=== PATIENT | female | born 1950 | race Caucasian/White ===

== ENCOUNTER 2020-12-21 11:58 | Outpatient (REF) | payer MEDICARE, SELFPAY ==
[2020-12-21 13:06] LABS: MANUAL DIFF FLAG NO
[2020-12-21 13:14] LABS: Basophils Percent Auto 0.3 % (0-2); Eosinophils Absolute Auto 0.2 X10*3/uL (0.0-0.4); Hematocrit 42.6 % (37-47); Hemoglobin 13.4 g/dl (12.0-16.0); Imm Gran Abs Auto 0.03 X10*3/uL (0.00-0.03); Imm Gran Pct Auto 0.3 % (0.0-0.4); Lymphocytes Absolute Auto 2.6 X10*3/uL (1.2-4.9); Lymphocytes Percent Auto 26.4 % (20-40); Mean Corpuscular HGB Conc 31.5 g/dl (31.0-35.0); Mean Corpuscular Hemoglobin 29.1 pg (27.0-33.0); Mean Corpuscular Volume 92.4 fL (80-98); Mean Platelet Volume 10.8 fL (9.4-12.3); Monocytes Absolute Auto 0.8 X10*3/uL (0.1-1.2); Monocytes Percent Auto 8.2 % (2-11); Neutrophils Absolute Auto 6.3 X10*3/uL (2.0-8.3); Neutrophils Percent Auto 62.8 % (45-73); Platelet Count 244 X10*3/uL (160-400); Red Blood Count 4.61 X10*6/uL (4.20-5.50); Red Cell Distribution Width 15.4 % (11.0-16.0)
[2020-12-21 13:33] LABS: Alanine Aminotransferase 11 U/L (0-31); Alkaline Phosphatase 112 U/L (39-117); Anion Gap 13 (12-20); Aspartate Amino Transferase 18 U/L (5-31); Bilirubin Total 0.6 mg/dL (0.0-1.0); Blood Urea Nitrogen 17 mg/dL (9-16); Calcium 10.3 mg/dL (8.4-10.2); Carbon Dioxide 23 mmol/L (22-29); Chloride 109 mmol/L (96-108); Cholesterol 104 mg/dL; Estimated Glomerular Filt Rate > 60; Glucose Fasting 70 mg/dL (60-99); HDL Cholesterol 33 mg/dL; LDL Cholesterol Calculated 49 mg/dl; Potassium 4.7 mmol/L (3.3-5.1); Sodium 140 mmol/L (135-145); Total Protein 7.1 g/dL (6.5-8.0); Triglycerides 113 mg/dL
== END 2020-12-21 11:59 | disposition home or self-care (01) ==
LOC: HO.LAB 11:58
PROVIDERS: PCP Internal Medicine; Visit Provider Internal Medicine
DX: D64.9 Anemia, unspecified (principal); E78.2 Mixed hyperlipidemia; R42 Dizziness and giddiness
CPT/HCPCS: 36415; 80053; 80061; 85025

== ENCOUNTER 2022-08-06 12:42 | Outpatient (REF) | payer MEDICARE, SELFPAY ==
[2022-08-06 15:01] LABS: Alanine Aminotransferase 15 U/L (0-31); Albumin Level 3.9 g/dL (3.5-5.0); Alkaline Phosphatase 170 U/L (39-117); Anion Gap 11 (12-20); Aspartate Amino Transferase 18 U/L (5-31); Bilirubin Total 0.6 mg/dL (0.0-1.0); Blood Urea Nitrogen 19 mg/dL (9-16); Calcium 10.5 mg/dL (8.4-10.2); Carbon Dioxide 24 mmol/L (22-29); Chloride 107 mmol/L (96-108); Cholesterol 118 mg/dL; Estimated Glomerular Filt Rate > 60; Glucose Fasting 75 mg/dL (60-99); HDL Cholesterol 42 mg/dL; LDL Cholesterol Calculated 58 mg/dl; Potassium 4.6 mmol/L (3.3-5.1); Sodium 137 mmol/L (135-145); Total Protein 6.8 g/dL (6.5-8.0); Triglycerides 93 mg/dL
== END 2022-08-06 12:43 | disposition home or self-care (01) ==
LOC: HO.LAB 12:42
PROVIDERS: PCP Internal Medicine; Visit Provider Internal Medicine
DX: E78.2 Mixed hyperlipidemia (principal)
CPT/HCPCS: 36415; 80053; 80061

== ENCOUNTER 2022-10-02 17:55 | Inpatient (IN) | payer MEDICARE, SELFPAY ==
--- NOTE | ~2022-10-02 | XR_ITS ---
EXAMINATION: XR CHEST CLINICAL INFORMATION: Hypoxia COMPARISON: None TECHNIQUE: Frontal view of the chest was obtained. FINDINGS: Diffuse prominence of interstitium. Bronchial thickening. Asymmetric elevation of left hemidiaphragm. No discrete consolidation. No pleural effusion or pneumothorax. Cardiac silhouette within normal limits, although poorly assessed in the [place] projection. Aorta is atherosclerotic. No acute osseous abnormalities. Chronic fracture deformity of the proximal humerus involving the metaphysis and humeral head XR/XR chest 1V IMPRESSION: * No focal consolidation. * Bronchial wall thickening and interstitial prominence suggestive of bronchitis. Interstitial edema may be contributing.
--- NOTE | ~2022-10-02 | CT_ITS ---
EXAMINATION: CT ANGIOGRAM OF THE CHEST WITH AND WITHOUT CONTRAST (CT PULMONARY ANGIOGRAM FOR PE) CLINICAL INFORMATION: Reason for Exam Hypoxia COMPARISON: None TECHNIQUE: Prior to contrast administration, noncontrast localization images were obtained. Subsequently, multidetector volumetric imaging was performed from the thoracic inlet to below the diaphragms following the administration of 65 mL Omnipaque 350 intravenous contrast. No contrast reaction reported Sagittal, coronal, and MIP oblique sagittal reformatted images were obtained on the CT workstation, uploaded to PACS, and reviewed. This CT examination was performed using dose optimization techniques as appropriate, variously including the following: *Automated exposure control *Adjustment of mA and/or kV according to patient size (this includes techniques or standardized protocols for targeted exams where dose is matched to indication/reason for exam; i.e. extremities or head) *Use of iterative reconstruction technique Total exam dose-length product 312 mGy-cm FINDINGS: QUALITY OF STUDY/CONTRAST BOLUS: Satisfactory. PULMONARY ARTERIES: No central or segmental pulmonary emboli. THORACIC AORTA: No aneurysm or dissection. LUNG: Moderate to severe emphysema. Left basilar subsegmental atelectasis. There is a punctate nodule in the lateral segment of the middle lobe. There are a few scattered calcified granulomata. PLEURA: No pleural effusion or pneumothorax. MEDIASTINUM: Normal heart size. No pericardial effusion. No hilar or mediastinal lymphadenopathy. No evidence of septal bowing or right heart strain. CORONARY ARTERY CALCIFICATION: Present. CHEST WALL/AXILLA: No axillary or internal mammary lymphadenopathy. OSSEOUS STRUCTURES: No acute or suspicious osseous abnormality. UPPER ABDOMEN: Unremarkable. CT/CT angio chest PE protocol IMPRESSION: * No evidence of pulmonary embolism. * No aortic aneurysm or dissection. * Moderate to severe emphysema VTE: negative
--- NOTE | ~2022-10-02 | US_ITS ---
EXAMINATION: US ABDOMEN LIMITED CLINICAL INFORMATION: Right upper quadrant pain. COMPARISON: CTA chest earlier today. TECHNIQUE: Real-time imaging of the right upper quadrant abdominal viscera. FINDINGS: Very limited examination secondary to patient body habitus and shadowing from overlying bowel gas. PANCREAS: Not visualized LIVER: Limited visualization with suggestion of increased echogenicity and coarsening of the liver parenchyma. No discrete mass, although evaluation is limited. GALLBLADDER: No shadowing stones, significant wall thickening or pericholecystic free fluid. COMMON BILE DUCT: Visualized portions are nondilated measuring 0.3 cm. RIGHT KIDNEY: Very limited visualization measuring approximately 6.8 cm in length. No nephrolithiasis or hydronephrosis. FREE FLUID: None. US/US abdomen limited IMPRESSION: 1. Very limited examination secondary to patient body habitus and shadowing from overlying bowel gas. 2. There is suggestion of increased echogenicity and coarsening of the liver parenchyma, which could be seen in the setting of hepatic steatosis, hepatocellular disease and cirrhosis.
[2022-10-02 18:10] VITALS: BP 132/78; BP 152/74; PULSE 87; RESP 16; TEMP 36.8; O2SAT 98; BMI 21.8
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
[2022-10-02 18:52] LABS: MANUAL DIFF FLAG NO
[2022-10-02 18:53] LABS: Hematocrit 45.3 % (37.0-47.0); Hemoglobin 14.2 g/dl (12.0-16.0); Mean Corpuscular HGB Conc 31.3 g/dl (31.0-35.0); Mean Corpuscular Hemoglobin 28.6 pg (27.0-33.0); Mean Corpuscular Volume 91.1 fL (80.0-98.0); Platelet Count 205 X10*3/uL (160-400); Red Blood Count 4.97 X10*6/uL (4.20-5.50); Red Cell Distribution Width 15.1 % (11.0-16.0); White Blood Count 9.6 X10*3/uL (4.8-10.8)
[2022-10-02 18:54] LABS: Basophils Absolute Auto 0.1 X10*3/uL (0.0-0.2); Basophils Percent Auto 0.5 % (0-2); Eosinophils Absolute Auto 0.2 X10*3/uL (0.0-0.4); Eosinophils Percent Auto 2.3 % (0-4); Imm Gran Abs Auto 0.04 X10*3/uL (0.00-0.03); Imm Gran Pct Auto 0.4 % (0.0-0.4); Lymphocytes Percent Auto 30.9 % (20-40); Mean Platelet Volume 10.3 fL (9.4-12.3); Monocytes Absolute Auto 0.7 X10*3/uL (0.1-1.2); Monocytes Percent Auto 7.6 % (2-11); Neutrophils Absolute Auto 5.6 x10*3/uL (2.0-8.3); Neutrophils Percent Auto 58.3 % (45-73)
[2022-10-02 19:17] LABS: Alanine Aminotransferase 11 U/L (0-31); Albumin Level 3.5 g/dL (3.5-5.0); Alkaline Phosphatase 147 U/L (39-117); Anion Gap 14 (12-20); Aspartate Amino Transferase 20 U/L (5-31); Bilirubin Total 0.6 mg/dL (0.0-1.0); Blood Urea Nitrogen 14 mg/dL (9-16); Calcium 8.7 mg/dL (8.4-10.2); Carbon Dioxide 23 mmol/L (22-29); Chloride 109 mmol/L (96-108); Creatinine Clr Calc Pharmacy 51.5; Estimated Glomerular Filt Rate > 60; Glucose Random 81 mg/dL (60-115); Magnesium 1.3 mg/dL (1.6-2.6); Potassium 3.5 mmol/L (3.3-5.1); Sodium 142 mmol/L (135-145); Total Protein 6.2 g/dL (6.5-8.0)
[2022-10-02] MEDS: 0.9 % Sodium Chloride 1,000 ML 999 ML IV (19:23)
[2022-10-02 19:46] LABS: Appearance Urine Clear; Color Urine Yellow; Glucose Urine UA Negative (Negative); Leukocyte Esterase Urine Moderate (2+) (Negative); Nitrite Urine Positive (Negative); UMIC TRIGGER UACC YES; Urine Blood Negative (Negative); Urine Ketones Negative (Negative); Urine Protein Trace mg/dL (Neg-Trace)
[2022-10-02 19:52] LABS: Bacteria Urine 4+ (None Seen); Hyaline Casts Urine 0-2 /LPF (0-2); Squamous Epithelial Cell Urine 0-2 /HPF (0-2); UACC Culture Trigger YES; WBC Urine 21-50 /HPF (0-5)
[2022-10-02] MEDS: Magnesium Sulfate/H2O 2 GM/50 ML PIGGYBACK IV (20:35)
[2022-10-02] MEDS: cefTRIAXone sodium 1 GM in 0.9 % Sodium Chloride 50 ML IV (21:05)
[2022-10-02 22:27] VITALS: BP 144/79; PULSE 78; TEMP 36.4; O2SAT 91
[2022-10-02 23:01] VITALS: O2SAT 85
--- NOTE | 2022-10-02 23:09 | PC.NURSE ---
Assumed care of pt. at 1900. At that time, pt. resting quietly in bed. Pt. pending fluids, which this RN had running per SEP. Pt. urine collected and sent to lab. At around 2229 pt. oxygen found to be low at 85. Checked O2 sensor and O2 bumped up to 91%. Pt. began to desat again and was found to be at 85% on room air. MD notified and respiratory called to administer a breathing treatment.
[2022-10-02] MEDS: methylPREDNISolone Sod Succ 125 MG/2 ML VIAL IVPUSH (23:19)
[2022-10-02 23:23] VITALS: PULSE 76; RESP 16; O2SAT 86
[2022-10-02 23:28] VITALS: O2SAT 86
[2022-10-02 23:46] LABS: ABG Refer to POC result
[2022-10-02 23:47] LABS: ABG Base Excess -4.8 mmol/L; ABG HCO3 20 mmol/L (22-26); ABG pCO2 37 mmHg (32-45); ABG pH 7.33 (7.35-7.45); ABG pO2 62 mmHg (83-108)
[2022-10-03 00:36] LABS: COVID-19 Test Negative (Negative); IDNOW Serial# 16C4AD1C
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
[2022-10-03] MEDS: Heparin Sodium,Porcine 5,000 UNIT/ML VIAL 5000 UNIT SUBCUT ×3 (01:29→17:14)
[2022-10-03] MEDS: iohexoL 350 MG/ML 100 ML INFUS..BTL 65 ML IV (03:05)
[2022-10-03 03:11] VITALS: BP 122/69; PULSE 76; RESP 16; TEMP 36.8; O2SAT 96
[2022-10-03 04:00] VITALS: BP 125/57; PULSE 78; RESP 15; TEMP 37.1; O2SAT 97
--- NOTE | 2022-10-03 04:15 | PC.NURSE ---
Pt. assigned a room on [facility], [facility]. Report called up to ASHLEE Celestin.
[2022-10-03 05:36] VITALS: BMI 21.4
[2022-10-03 06:50] LABS: Alanine Aminotransferase 10 U/L (0-31); Albumin Level 3.2 g/dL (3.5-5.0); Alkaline Phosphatase 138 U/L (39-117); Anion Gap 14 (12-20); Aspartate Amino Transferase 17 U/L (5-31); Bilirubin Total 0.4 mg/dL (0.0-1.0); Blood Urea Nitrogen 15 mg/dL (9-16); Calcium 8.3 mg/dL (8.4-10.2); Carbon Dioxide 19 mmol/L (22-29); Chloride 111 mmol/L (96-108); Creatinine Clr Calc Pharmacy 42.9; Estimated Glomerular Filt Rate 58; Glucose Random 175 mg/dL (60-115); Potassium 3.5 mmol/L (3.3-5.1); Sodium 140 mmol/L (135-145); Total Protein 5.8 g/dL (6.5-8.0)
--- NOTE | 2022-10-03 07:00 | CA_ITS ---
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 The calculated ejection fraction is 71% by biplane method. - No obvious valvular pathology seen on this study. Findings Left Ventricle Normal left ventricular cavity size. There is mildly increased left ventricular wall thickness. The left ventricular systolic function is hyperdynamic. The calculated ejection fraction is 71% by biplane method. There is no evidence of regional wall motion abnormalities. Diastolic function is normal for age. Right Ventricle Normal right ventricular cavity size and systolic function. Atria Both atria are normal in size. Aortic Valve There is a normal trileaflet aortic valve. There is no aortic valve stenosis. There is no aortic valve regurgitation. Mitral Valve There is mild mitral annular calcification. There is trace mitral valve regurgitation. There is no mitral valve stenosis. Pulmonic Valve The pulmonic valve is likely normal. Tricuspid Valve Normal tricuspid valve structure. There is trace tricuspid valve regurgitation. There is no evidence of pulmonary hypertension. Great Vessels The asc aorta is normal in size. Venous The inferior vena cava is normal in size and collapses greater than 50% with inspiration. Pericardium/Pleural There is no evidence of pericardial effusion. Prior Study Comparison No prior study available for comparison. Recommendations, Care & Conclusions No obvious valvular pathology seen on this study. Measurements 2D Linear Measurements IVSd: 1.09 0.6-0.9/0.6-1.0 cm LVIDd: 3.46 3.9-5.3/4.2-5.9 cm LVIDd Index: 2.28 2.4-3.2/2.2-3.1 cm/m2 LVIDs: 2.31 2.0-3.6 cm LVPWd: 1.07 0.7-1.1 cm LA Diam: 3.20 2.7-3.8/3.0-4.0 cm LAIDs Index: 2.11 1.5-2.3 cm/m2 LV Mass: 141.53 67-162/88-224 g LV Mass Index: 93.11 43-95/49-115 g/m2 LVOT Diam: 2.00 3.0+(-)1.3 cm 2D Systolic Function EF 4C: 70.60 >55% EF 2C: 71.40 >55% EF BiP: 71.40 >55% Mitral Valve MV VTI: 0.35 MV Pk Aiden: 1.13 MV Mn Aiden: 0.69 MV Pk Grad: 5.00 MV Mn Grad: 2.00 MV Pk E: 0.85 MV Decel Time: 229.00 E'Lateral: 8.27 E'Medial: 5.98 E/E' Med: 14.20 E/E' Lat: 10.30 PHT: 67.00 MVA PHT: 3.28 MVA Continuity: 1.86 Decel Foster: 3.72 Aortic Valve AoV Pk Aiden: 1.61 AoV Mn Aiden: 0.97 AoV VTI: 0.33 AoV Pk Grad: 10.00 Aov Mn Grad: 5.00 SHREYA Cont.VTI: 1.98 LVOT LVOT Pk Aiden: 1.11 LVOT Mn Aiden: 0.70 LVOT VTI: 0.21 LVOT Pk Grad: 5.00 LVOT Mn Grad: 2.00 LVOT Diam: 2.00 LVOT Area: 3.14 Diastolic Function MV Pk E: 0.85 E'Medial: 5.98 E/E' Med: 14.20 E' Laterial: 8.27 E/E' Lat: 10.30 Right Ventricle TAPSE (mm): 19.50 TVS' Aiden: 12.80 Tricuspid Valve TR Pk Aiden: 2.40 TR Pk Grad: 23.00 Great Vessels Aorta Sinus of Valsalva: 3.00 2.0-3.5 cm Ao Asc: 2.80 2.1-3.4 cm Pulmonary Valve PV Pk Aiden: 1.13 Peak PV Grad: 5.00 Updated in Other Vendor System with Status of Final Prakash Tobar MD electronically signed on 10/03/2022 2:04:08 PM with status of Final
[2022-10-03 07:26] VITALS: BP 113/56; PULSE 68; RESP 20; TEMP 36.2; O2SAT 95
--- NOTE | 2022-10-03 08:15 | PHA.MEDREC ---
Pharmacy Consult ? Medication Reconciliation Pharmacy has completed the medication reconciliation.
--- NOTE | 2022-10-03 08:16 | PHA.MEDREC ---
Pharmacy Consult ? Medication Reconciliation Pharmacy has reviewed the medication reconciliation. Spoke to patient who gave me a list.
[2022-10-03] MEDS: gemfibroziL 600 MG TABLET PO (08:35)
[2022-10-03] MEDS: 0.9 % Sodium Chloride Flush 3 ML SYRINGE IVFLUSH ×3 (08:35→20:48)
[2022-10-03] MEDS: Famotidine 20 MG TABLET PO ×2 (08:35→20:48)
[2022-10-03] MEDS: Baclofen 10 MG TABLET PO (08:35)
[2022-10-03] MEDS: Atorvastatin Calcium 40 MG TABLET PO (08:35)
--- NOTE | 2022-10-03 09:37 | MHC.CM.PN ---
Addendum entered by Alysa Fisher 10/03/22 10:44: PER [facility], PT IS NOT CURRENTLY ACTIVE WITH THEM. CM WILL CONTIUE TO FOLLOW FOR PLAN/DC NEEDS. Original Note: [facility] DELIVERED PT LIVES ALONE IN A MOBILE HOME. USES WALKER FOR MOBILITY AND HAS MOD BR. PT IS ACTIVE WITH [facility] FOR SN/PT/OT. RETURN REFERRAL TO BE SENT. + COVID VAX X4 + HCP (PT STATES ON FILE HERE AND AT MD OFFICE) PCP DR. DHALIWAL AT [facility] [place]. DP: HOME, RESUME SERVICES WITH [facility]. PT STATES SHE WILL NEED TRANSPORT ON DC. CM WILL CONTINUE TO FOLLOW.
[2022-10-03 11:23] VITALS: BP 112/59; PULSE 75; RESP 20; TEMP 35.9; O2SAT 94
[2022-10-03] MEDS: guaiFENesin LA 600 MG TAB.ER.12H PO ×2 (11:31→20:48)
[2022-10-03] MEDS: Benzonatate 100 MG CAPSULE PO ×3 (11:31→20:48)
[2022-10-03] MEDS: Furosemide 20 MG/2 ML VIAL IVPUSH (11:31)
--- NOTE | 2022-10-03 14:37 | PM.EVENT ---
Event Note Date of Service: 10/03/22 Event Note: Patient was seen and evaluated this morning Complaining of dyspnea and coughing Continue DuoNebs Start gentle Lasix Start cough medication Pending echo Wean oxygen down as tolerated Time Spent With Patient Time: Total time managing care of this patient today ____ minutes.
[2022-10-03 15:15] VITALS: BP 119/59; PULSE 74; RESP 15; TEMP 36.2; O2SAT 95
[2022-10-03 18:46] VITALS: BP 106/68; PULSE 81; RESP 15; TEMP 36.3; O2SAT 93
[2022-10-03] MEDS: Gabapentin 300 MG CAPSULE 600 MG PO (20:47)
[2022-10-03] MEDS: rOPINIRole HCL 1 MG TABLET PO (20:48)
[2022-10-03] MEDS: cefTRIAXone sodium 1 GM in 0.9 % Sodium Chloride 50 ML IV (20:51)
[2022-10-03] MEDS: oxyCODONE HCl Immed Release 5 MG TABLET PO (21:53)
[2022-10-04] VITALS (8 sets, daily range): BP systolic 108–129; BP diastolic 62–75; PULSE 64–97; RESP 12–20; TEMP 36.1–37.2; O2SAT 92–97
[2022-10-04] MEDS: Heparin Sodium,Porcine 5,000 UNIT/ML VIAL 5000 UNIT SUBCUT ×3 (00:28→16:59)
[2022-10-04] MEDS: gemfibroziL 600 MG TABLET PO (08:34)
[2022-10-04] MEDS: Famotidine 20 MG TABLET PO ×2 (08:34→21:12)
[2022-10-04] MEDS: Benzonatate 100 MG CAPSULE PO ×3 (08:34→21:11)
[2022-10-04] MEDS: guaiFENesin LA 600 MG TAB.ER.12H PO ×2 (08:34→21:12)
[2022-10-04] MEDS: Atorvastatin Calcium 40 MG TABLET PO (08:34)
[2022-10-04] MEDS: 0.9 % Sodium Chloride Flush 3 ML SYRINGE IVFLUSH ×2 (08:34→16:59)
[2022-10-04] MEDS: Baclofen 10 MG TABLET PO (08:34)
[2022-10-04] MEDS: Nystatin Powder 15 GM BOTTLE 1 APPL TOPICAL (08:43)
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
[2022-10-04] MEDS: Acetaminophen 325 MG TABLET 650 MG PO (14:09)
[2022-10-04] MEDS: predniSONE 20 MG TABLET 40 MG PO (14:11)
[2022-10-04] MEDS: Furosemide 20 MG/2 ML VIAL IVPUSH (14:25)
[2022-10-04] MEDS: Gabapentin 300 MG CAPSULE 600 MG PO (21:11)
[2022-10-04] MEDS: rOPINIRole HCL 1 MG TABLET PO (21:12)
[2022-10-04] MEDS: cefTRIAXone sodium 1 GM in 0.9 % Sodium Chloride 50 ML IV (21:12)
[2022-10-05 01:55] VITALS: BP 119/62; PULSE 87; RESP 18; TEMP 36.3; O2SAT 95
[2022-10-05 07:56] VITALS: BP 115/65; PULSE 73; RESP 16; TEMP 36.6; O2SAT 96
[2022-10-05] MEDS: Heparin Sodium,Porcine 5,000 UNIT/ML VIAL 5000 UNIT SUBCUT (08:36)
[2022-10-05] MEDS: Atorvastatin Calcium 40 MG TABLET PO (08:37)
[2022-10-05] MEDS: gemfibroziL 600 MG TABLET PO (08:37)
[2022-10-05] MEDS: guaiFENesin LA 600 MG TAB.ER.12H PO (08:37)
[2022-10-05] MEDS: Benzonatate 100 MG CAPSULE PO (08:37)
[2022-10-05] MEDS: Famotidine 20 MG TABLET PO (08:37)
[2022-10-05] MEDS: Baclofen 10 MG TABLET PO (08:38)
[2022-10-05] MEDS: 0.9 % Sodium Chloride Flush 3 ML SYRINGE IVFLUSH (08:38)
[2022-10-05] MEDS: predniSONE 20 MG TABLET 40 MG PO (08:51)
[2022-10-05 11:40] VITALS: BP 100/65; PULSE 87; RESP 12; TEMP 36.4; O2SAT 94
[2022-10-05 11:44] VITALS: PULSE 84; PULSE 90; O2SAT 84; O2SAT 94
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
[2022-10-05] MEDS: Lactulose 20 GM/30 ML SOLUTION PO (12:10)
[2022-10-05] MEDS: Nystatin Powder 15 GM BOTTLE 1 APPL TOPICAL (12:10)
--- NOTE | 2022-10-05 12:17 | MHC.CM.PN ---
DP: PT HAS BEEN MEDICALLY CLEARED FOR DC TO ACUTE REHAB, [facility] HAS OFFERED A BED. RN AWARE. BROTHER DYLAN NOTIFIED. TRANSPORTATION BOOKED FOR 1 PM VIA [facility].
== END 2022-10-05 14:30 | disposition skilled nursing facility (03) | DRG 190 ==
LOC: HO.ED 23:01 → HO.EDOVER 10-03 01:02 → HO.IMC 10-03 03:25
PROVIDERS: Admitting Provider Hospitalist; Emergency Provider Internal Medicine; PCP Internal Medicine; Visit Provider Student in an Organized Health Care Education/Training Program
DX: J44.0 Chronic obstructive pulmonary disease with (acute) lower respiratory infection (principal); J96.01 Acute respiratory failure with hypoxia; E78.2 Mixed hyperlipidemia; J44.1 Chronic obstructive pulmonary disease with (acute) exacerbation; E83.42 Hypomagnesemia; J20.9 Acute bronchitis, unspecified; I10 Essential (primary) hypertension; G25.81 Restless legs syndrome; Z20.822 Contact with and (suspected) exposure to COVID-19; Z87.891 Personal history of nicotine dependence; Z89.511 Acquired absence of right leg below knee; Z88.0 Allergy status to penicillin; Z88.1 Allergy status to other antibiotic agents; Z88.5 Allergy status to narcotic agent; Z79.899 Other long term (current) drug therapy
CPT/HCPCS: 36415; 71045; 71275; 76705; 80053; 81001; 82550; 82803; 83735; 85025; 87086; 87635; 93306; 94640; 96361; 96365; 96366; 96375; 97162; 99285; J0696; J1643; J1940; J2930; J3475; Q9967

== ENCOUNTER 2022-10-29 13:37 | Outpatient (REF) | payer MEDICARE, SELFPAY ==
[2022-10-29 17:50] LABS: Alanine Aminotransferase 13 U/L (0-31); Albumin Level 3.4 g/dL (3.5-5.0); Alkaline Phosphatase 164 U/L (39-117); Anion Gap 14 (12-20); Aspartate Amino Transferase 15 U/L (5-31); Bilirubin Total 0.5 mg/dL (0.0-1.0); Blood Urea Nitrogen 26 mg/dL (9-16); Calcium 9.1 mg/dL (8.4-10.2); Carbon Dioxide 23 mmol/L (22-29); Chloride 111 mmol/L (96-108); Cholesterol 123 mg/dL; Estimated Glomerular Filt Rate 48; Glucose Random 66 mg/dL (60-115); HDL Cholesterol 44 mg/dL; LDL Cholesterol Calculated 58 mg/dl; Magnesium 1.7 mg/dL (1.6-2.6); Potassium 3.6 mmol/L (3.3-5.1); Sodium 144 mmol/L (135-145); Triglycerides 108 mg/dL
== END 2022-10-29 13:38 | disposition home or self-care (01) ==
LOC: HO.HVNA 13:37
PROVIDERS: Visit Provider Internal Medicine
DX: E83.42 Hypomagnesemia (principal); M54.9 Dorsalgia, unspecified; E78.5 Hyperlipidemia, unspecified
CPT/HCPCS: 80053; 80061; 83735

== ENCOUNTER 2022-11-12 14:27 | Emergency (ER) | payer MEDICARE, SELFPAY ==
--- NOTE | ~2022-11-12 | US_ITS ---
EXAMINATION: US VENOUS ULTRASOUND WITH DOPPLER LOWER EXTREMITY, LEFT CLINICAL INFORMATION: Left lower extremity swelling COMPARISON: None available. TECHNIQUE: Ultrasound of the deep veins is performed from the hip to the calf with compression sonography and color and pulse Doppler assessment. Spectral analysis with color-flow imaging is performed. FINDINGS: The common femoral vein is compressible and exhibits a normal phasic waveform; this suggests that the iliac veins are widely patent above. Within the proximal thigh, the visualized profunda femoris vein is normal. The examined greater saphenous vein and saphenofemoral junction are normal. Superficial femoral vein is patent in the proximal, mid and distal thigh. Popliteal vein is normal to the level of the trifurcation. On compression ybarra scale and color Doppler images, the visualized deep calf veins are grossly patent. No evidence of Ruiz's cyst. There is edema within subcutaneous tissues of the leg. US/US venous duplex LE LT IMPRESSION: * No evidence of deep vein thrombosis in the left lower extremity. * There is edema within the subcutaneous tissues of the leg.
[2022-11-12 14:39] VITALS: BP 122/66; PULSE 68; O2SAT 95
[2022-11-12 14:41] VITALS: BP 108/57; PULSE 64; RESP 19; TEMP 36.6; O2SAT 95; BMI 24.1
--- NOTE | 2022-11-12 14:56 | ED.GENADULT ---
HPI - General Adult General Chief complaint: General Medical Stated complaint: Swelling in lower leg per EMS Time Seen by Provider: 11/12/22 14:55 History of Present Illness HPI narrative: Patient is a 72-year-old female with past history of COPD, smoking, right TKA in 1984, chronic pain disorder, restless leg syndrome, GERD, insomnia and HLD presenting with left lower leg erythema, swelling and pain since , 11/06. She states that her visiting nurse applied an Mark wrap to her leg on , but by Thursday the swelling had increased and her occupational therapist had to remove the Mark wrap. She also reports minor skin tear to her left anterior hernandez, states her dog scratched her this morning. She reports ongoing pain, swelling, and erythema since. She denies any fevers. She denies any chest pain or shortness of breath. She states that her visiting nurse told her to increase her fluid intake and that she was doing that and initially had increased urinary output. She reports that she has continued to increase her fluid intake, and has urinary frequency, but has had decreased urinary output over the past 2 days. She also reports dysuria when beginning to urinate. She reports back pain which she describes as spasming and states she has had this since her recent rehab admission. She denies any abdominal pain, nausea, vomiting, diarrhea or constipation. She also reports discomfort in the area of her coccyx and states that her visiting nurse has been applying a cream to this area. Onset (ago): day(s) Location: left and lower extremity Radiation: non-radiation Quality: burning and aching Pain Consistency: constant Relieving factors: none Exacerbating factors: movement Associated symptoms: denies other symptoms Treatments prior to arrival: other (mark wrap) Related Data Previous Rx's Medication Instructions Recorded nystatin 100,000 unit/gram topical 1 appl topical BID 30 days #30 03/04/22 powder grams atorvastatin 40 mg tablet 40 mg PO DAILY 90 days #90 tabs 04/21/22 walker with seat and brakes #1 ea 04/21/22 Ventolin HFA 90 mcg/actuation 2 puff inhalation Q6H PRN 08/11/22 aerosol inhaler (albuterol sulfate) shortness of breath or wheezing 30 days #8 grams baclofen 10 mg tablet 10 mg PO DAILY 90 days #90 tabs 09/04/22 gemfibrozil 600 mg tablet 600 mg PO DAILY 90 days #90 tabs 09/04/22 famotidine 20 mg tablet 20 mg PO BID 90 days #180 tabs 09/06/22 gabapentin 300 mg capsule 600 mg PO BEDTIME 90 days #180 caps 09/06/22 albuterol sulfate 2.5 mg/3 mL 2.5 mg (3 mL) inhalation RQ6H 10/05/22 (0.083 %) solution for nebulization WHILE AWAKE 5 days #45 mL ipratropium bromide 0.02 % 0.5 mg (2.5 mL) inhalation RQ6H 10/05/22 solution for inhalation WHILE AWAKE 5 days #37.5 mL prednisone 20 mg tablet 40 mg PO DAILY #8 tabs 10/05/22 diazepam 2 mg tablet 2 mg PO BEDTIME PRN sleep 30 days 10/24/22 #30 tabs meclizine 12.5 mg tablet 12.5 mg PO BID PRN dizziness 90 10/24/22 days #180 tabs tizanidine 4 mg tablet 4 mg PO BEDTIME #30 tabs 10/24/22 umeclidinium 62.5 mcg/actuation 1 inh inhalation DAILY #30 ea 10/24/22 blister powder for inhalation (Incruse Ellipta) acetaminophen 300 mg-codeine 15 mg 1 tab PO BID PRN pain 30 days #20 10/29/22 tablet tabs cephalexin 500 mg capsule 500 mg PO Q6H 7 days #28 caps 11/12/22 Allergies Allergy/AdvReac Type Severity Reaction Status Date / Time clindamycin Allergy Intermediate Diarrhea Verified 11/12/22 14:40 hydrocodone [Vicodin] Allergy Mild Hives Verified 11/12/22 14:40 penicillin V Allergy Mild Hives Verified 11/12/22 14:40 Review of Systems Review of Systems: Yes all other systems are reviewed and are negative [facility] Past Medical History Medical History (Updated 11/13/22 @ 00:14 by Teofilo Kowalski) Below-knee amputation of right lower extremity Chronic leg pain COPD (chronic obstructive pulmonary disease) GERD (gastroesophageal reflux disease) Hypomagnesemia Insomnia Left shoulder pain Mixed hyperlipidemia Restless leg syndrome Vertigo Weakness Surgical History Hx of right BKA Family History Family History Mother Diabetes Father Heart attack Social History Social History Household Members: None Housing: House Do you presently have visiting nurse or other home services: No (lost services two weeks ago d/t insurance/monetary complications) Alcohol intake: never Patient Tobacco Use Status: Former Tobacco user Tobacco use type: Cigarette Cigarettes Per Day: 10 Smoked in Last 30 Days: No e-Cigarette/Vaping Use: Never Used Second Hand Smoke Exposure: No Advance Directives: Yes Advance Directives on File: Yes Advance Directives Date on File: 04/23/22 service: No Current occupational status: retired and disabled Cognitive needs: Yes (walker/Transport wheelchair) Hearing needs: No Vision needs: Yes (Contacts) Physical Exam ED Vital Signs: Vital Signs - 24 hr 11/12/22 14:41 Temperature 98 F Pulse Rate 64 Respiratory Rate 19 Blood Pressure 108/57 L Pulse Oximetry 95 Oxygen Delivery Method Room Air BMI result Body Mass Index 24.1 Appearance: Alert. Oriented X3. No acute distress. Head: normocephalic, atraumatic. Eyes: Pupils equal, round and reactive to light. ENT: Pharynx normal. No tonsillar swelling or exudate. Neck: Normal inspection. Neck supple. CVS: Normal heart rate and rhythm. Pulses normal. Respiratory: No respiratory distress. Breath sounds normal. Abdomen: Soft and nontender. +BS x4. No CVA tenderness. Skin: Circumferential erythema and slight calor to distal left lower extremity. 1cm skin tear mid anterior hernandez weeping serous fluid. Blanchable erythema to coccyx. Skin otherwise warm and dry. Normal skin color. Normal skin turgor. No rashes. Extremities: Left lower extremity 1+ pitting edema to ankle and foot, 2+ PT pulse. Calf pain with dorsiflexion of left foot. Right BKA. Neuro/psych: Oriented X 3. No motor deficit. No sensory deficit. CN II-XII intact. Normal speech and cognition. Course Course Course Narrative: Patient signed out to Dr. Wilks pending ultrasound results. Medications Administered Discontinued Medications Generic Name Dose Route Start Last Admin Trade Name Freq PRN Reason Stop Dose Admin Potassium Chloride 40 meq 11/12/22 15:57 11/12/22 16:19 Potassium Chloride Er 20 Meq Tab.Er.Prt PO 11/12/22 15:58 40 meq ONCE ONE Administration Medical Decision Making Medical Decision Making [facility] Narrative: Patient is a 72-year-old female presenting with left lower extremity erythema, swelling and pain for 1 week. Concern for cellulitis versus DVT, ultrasound pending. Potassium 3.0, ordered potassium chloride 40 mEq. Patient also complaining of dysuria and urinary frequency, awaiting urine results. Differential Diagnosis Differential Diagnoses: The differential diagnosis associated with the presentation includes Cellulitis, DVT, UTI Lab Data [facility] Lab Attestation statement: I reviewed the patient's lab results. 11/12/22 15:22 11/12/22 15:22 Labs: Lab Results 11/12/22 11/12/22 11/12/22 Range/Units 15:22 15:22 16:23 WBC 9.0 (4.8-10.8) X10*3/uL RBC 4.45 (4.20-5.50) X10*6/uL Hgb 13.0 (12.0-16.0) g/dl Hct 40.8 (37.0-47.0) % MCV 91.7 (80.0-98.0) fL MCH 29.2 (27.0-33.0) pg MCHC 31.9 (31.0-35.0) g/dl RDW 17.2 H (11.0-16.0) % Plt Count 153 L D (160-400) X10*3/uL MPV 10.7 (9.4-12.3) fL Immature Gran % (Auto) 0.4 (0.0-0.4) % Neut % (Auto) 69.0 (45-73) % Lymph % (Auto) 21.7 (20-40) % [place] % (Auto) 7.3 (2-11) % Eos % (Auto) 1.2 (0-4) % Baso % (Auto) 0.4 (0-2) % Lymph # (Auto) 1.9 (1.2-4.9) X10*3/uL [place] # (Auto) 0.7 (0.1-1.2) X10*3/uL Eos # (Auto) 0.1 (0.0-0.4) X10*3/uL Baso # (Auto) 0.0 (0.0-0.2) X10*3/uL Abs Immat Gran (auto) 0.04 H (0.00-0.03) X10*3/uL Absolute Neuts (auto) 6.2 (2.0-8.3) x10*3/uL Absolute Nucleated RBC 0.000 (0.0-0.012) X10*3/uL Nucleated RBC % (auto) 0.0 (0.0-0.2) /100WBC Sodium 142 (135-145) mmol/L Potassium 3.0 L (3.3-5.1) mmol/L Chloride 111 H (96-108) mmol/L Carbon Dioxide 20 L (22-29) mmol/L Anion Gap 14 (12-20) BUN 14 (9-16) mg/dL Creatinine 1.02 (0.5-1.4) mg/dL Estim Creat Clear Calc 41.4 Estimated GFR 53 Random Glucose 75 (60-115) mg/dL Calcium 8.2 L D (8.4-10.2) mg/dL Urine Color Yellow Urine Appearance Cloudy Urine pH 6.5 (5.0-9.0) Ur Specific [place] 1.015 (1.005-1.025) Urine Protein 30 (1+) H (Neg-Trace) mg/dL Urine Glucose (UA) Negative (Negative) mg/dL Urine Ketones Negative (Negative) mg/dL Urine Blood Negative (Negative) Urine Nitrite Positive H (Negative) Ur Leukocyte Esterase Moderate (2+) H (Negative) Urine RBC >20 H (0-2) /HPF Urine WBC 21-50 H (0-5) /HPF Ur Squamous Epith Cells 0-2 (0-2) /HPF Urine Bacteria 2+ (None Seen) Hyaline Casts 0-2 (0-2) /LPF Discharge Plan Discharge Clinical Impression: Cellulitis of left leg, Acute lower UTI Patient Disposition: Home, Self-Care Instructions: Cellulitis (DC), Urinary Tract Infection in Older Adults (ED) Additional Instructions: Your found to have a mildly low level of potassium a today, which was replaced in the ED. Your ultrasound showed no evidence of a blood clot in your leg. You are being treated for cellulitis as well as a urinary tract infection. Take the Keflex as prescribed, this will cover your cellulitis as well as your urinary tract infection. If your symptoms worsen or have not resolved after completing full course of antibiotics, follow-up with your PCP or return to the emergency department for re-evaluation. Prescriptions: New cephalexin 500 mg capsule 500 mg PO Q6H 7 Days Qty: 28 0RF No Action nystatin 100,000 unit/gram powder 1 appl topical BID 30 Days Qty: 30 1RF albuterol sulfate [Ventolin HFA] 90 mcg/actuation HFA aerosol inhaler 2 puff inhalation Q6H PRN (Reason: shortness of breath or wheezing) 30 Days Qty: 8 1RF gemfibrozil 600 mg tablet 600 mg PO DAILY 90 Days Qty: 90 1RF baclofen 10 mg tablet 10 mg PO DAILY 90 Days Qty: 90 1RF gabapentin 300 mg capsule 600 mg PO BEDTIME 90 Days Qty: 180 1RF famotidine 20 mg tablet 20 mg PO BID 90 Days Qty: 180 3RF acetaminophen-codeine 300-15 mg tablet 1 tab PO BID PRN (Reason: pain) 30 Days Qty: 20 0RF prednisone 20 mg Tablet 40 mg PO DAILY Qty: 8 0RF albuterol sulfate 2.5 mg /3 mL (0.083 %) Solution For Nebulization 2.5 mg inhalation RQ6H WHILE AWAKE 5 Days Qty: 45 0RF ipratropium bromide 0.02 % Solution 0.5 mg inhalation RQ6H WHILE AWAKE 5 Days Qty: 37.5 0RF (DME) walker with seat and brakes See Rx Instructions .Route .MEDSUPPLY Qty: 1 0RF Rx Instructions: As directed atorvastatin 40 mg tablet 40 mg PO DAILY 90 Days Qty: 90 3RF tizanidine 4 mg tablet 4 mg PO BEDTIME Qty: 30 0RF meclizine 12.5 mg tablet 12.5 mg PO BID PRN (Reason: dizziness) 90 Days Qty: 180 0RF Incruse Ellipta 62.5 mcg/actuation blister with device 1 inh inhalation DAILY Qty: 30 0RF diazepam 2 mg tablet 2 mg PO BEDTIME PRN (Reason: sleep) 30 Days Qty: 30 0RF Interventions: ED Discharge Assessment Last Done: 11/12/22 19:22 Discharge Date/Time: 11/12/22 19:30
[2022-11-12 15:26] LABS: MANUAL DIFF FLAG NO
[2022-11-12 15:28] LABS: Basophils Percent Auto 0.4 % (0-2); Eosinophils Absolute Auto 0.1 X10*3/uL (0.0-0.4); Eosinophils Percent Auto 1.2 % (0-4); Hematocrit 40.8 % (37.0-47.0); Imm Gran Abs Auto 0.04 X10*3/uL (0.00-0.03); Imm Gran Pct Auto 0.4 % (0.0-0.4); Lymphocytes Absolute Auto 1.9 X10*3/uL (1.2-4.9); Lymphocytes Percent Auto 21.7 % (20-40); Mean Corpuscular HGB Conc 31.9 g/dl (31.0-35.0); Mean Corpuscular Hemoglobin 29.2 pg (27.0-33.0); Mean Corpuscular Volume 91.7 fL (80.0-98.0); Mean Platelet Volume 10.7 fL (9.4-12.3); Monocytes Absolute Auto 0.7 X10*3/uL (0.1-1.2); Monocytes Percent Auto 7.3 % (2-11); Neutrophils Absolute Auto 6.2 x10*3/uL (2.0-8.3); Platelet Count 153 X10*3/uL (160-400); Red Blood Count 4.45 X10*6/uL (4.20-5.50); Red Cell Distribution Width 17.2 % (11.0-16.0)
[2022-11-12 15:41] LABS: Anion Gap 14 (12-20); Blood Urea Nitrogen 14 mg/dL (9-16); Calcium 8.2 mg/dL (8.4-10.2); Carbon Dioxide 20 mmol/L (22-29); Chloride 111 mmol/L (96-108); Creatinine Clr Calc Pharmacy 41.4; Estimated Glomerular Filt Rate 53; Glucose Random 75 mg/dL (60-115); Sodium 142 mmol/L (135-145)
[2022-11-12] MEDS: Potassium Chloride ER 20 MEQ TAB.ER.PRT 40 MEQ PO (16:19)
[2022-11-12 16:47] LABS: Appearance Urine Cloudy; Color Urine Yellow; Glucose Urine UA Negative (Negative); Leukocyte Esterase Urine Moderate (2+) (Negative); Nitrite Urine Positive (Negative); PH 6.5 (5.0-9.0); Specific Gravity - Urine 1.015 (1.005-1.025); UMIC TRIGGER UACC YES; Urine Blood Negative (Negative); Urine Ketones Negative (Negative); Urine Protein 30 (1+) mg/dL (Neg-Trace)
[2022-11-12 17:00] LABS: Bacteria Urine 2+ (None Seen); Hyaline Casts Urine 0-2 /LPF (0-2); RBC Urine >20 /HPF (0-2); Squamous Epithelial Cell Urine 0-2 /HPF (0-2); UACC Culture Trigger YES; WBC Urine 21-50 /HPF (0-5)
[2022-11-12 18:45] VITALS: BP 112/58; PULSE 67; RESP 16; TEMP 36.5; O2SAT 94
--- NOTE | 2022-11-12 18:58 | PC.NURSE ---
Pt requesting ride home via chair van/ ambulance
== END 2022-11-12 19:30 | disposition home or self-care (01) ==
PROVIDERS: Registered Nurse Emergency; Emergency Provider Emergency Medicine Emergency Medical Services; PCP Internal Medicine
DX: R60.0 Localized edema (principal); L03.116 Cellulitis of left lower limb; Z79.899 Other long term (current) drug therapy
CPT/HCPCS: 36415; 80048; 81001; 85025; 87086; 93971; 99284

== ENCOUNTER 2023-03-05 15:46 | Outpatient (AMB) | payer MEDICARE, SELFPAY ==
--- NOTE | 2023-03-05 15:58 | A.OFFPC_ITS ---
Vital Signs 03/05/23 15:59 Height 5 ft 1 in Weight 113 lb 12.136 oz BMI 21.5 BP 100/70 Blood Pressure Location Lt brachial Position Sitting Pulse 80 Pulse Source Pulse Oximeter Pulse Oximetry (%) 93 Oxygen Delivery Method Room Air Intake Visit Reasons: Physical exam Intake Note: Patient is here today for a physical. 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 Accompanied by: Self / Same As Patient Allergies clindamycin Allergy (Intermediate, Verified 03/05/23 16:23) Diarrhea hydrocodone [Vicodin] Allergy (Mild, Verified 03/05/23 16:23) Hives penicillin V Allergy (Mild, Verified 03/05/23 16:23) Hives Medication List - Last Reconciled 03/05/23 by Odilia Valdivia MD acetaminophen-codeine 300-15 mg 1 tab PO BID PRN 30 days albuterol sulfate 2.5 mg (3 mL) inhalation RQ6H WHILE AWAKE 5 days atorvastatin 40 mg PO DAILY 90 days baclofen 10 mg PO DAILY 90 days diazepam 2 mg PO BEDTIME PRN 30 days famotidine 20 mg PO BID 90 days gabapentin 600 mg (2 x 300 mg) PO BEDTIME 90 days ipratropium bromide 0.5 mg (2.5 mL) inhalation RQ6H WHILE AWAKE 5 days loperamide mg PO meclizine 12.5 mg PO BID PRN 90 days nystatin 1 appl topical BID 30 days ropinirole 1 mg PO BEDTIME tizanidine 4 mg PO BEDTIME umeclidinium 62.5 mcg/actuation (Incruse Ellipta) 1 inh inhalation DAILY Ventolin HFA 90 mcg/actuation (albuterol sulfate) 2 puffs inhalation Q6H PRN 30 days NS [walker with seat and brakes As directed] Tobacco use date assessed: 10/24/22 Fall risk assessment: 1 Fall in past year Last assessed Fall Risk: 03/05/23 Dental Screening Dental Screen Date: 03/05/23 Did you have a dental visit in the last 12 months?: No Did you have a dental problem in the last 6 months where you did not have access to dental care?: No Was dental information given to patient?: Yes (Form given to pt.) HPI HPI Comments History of Present Illness Details This is a 72-year-old female with COPD and right below-knee amputation for over 30 years that comes for her physical exam in a wheelchair. COPD is stable with inhalers. Has gait instability due to amputation and will benefit from having a VNA for physical therapy and occupational therapy. She will also benefit from LENS CEMENTER to help her bathe and mobility transfer. Mammogram was over a year ago. She declines having a bone density test. She does not recall about colonoscopy. Will send her a Cologuard. [facility] Medical History (Updated 03/06/23 @ 10:10 by Odilia Valdivia MD) Below-knee amputation of right lower extremity Chronic leg pain COPD (chronic obstructive pulmonary disease) GERD (gastroesophageal reflux disease) Hypomagnesemia Insomnia Left shoulder pain Mixed hyperlipidemia Restless leg syndrome Vertigo Weakness Surgical History Hx of right BKA Family History Mother Diabetes Father Heart attack Social History Household Members: None Housing: House Do you presently have visiting nurse or other home services: No (lost services two weeks ago d/t insurance/monetary complications) Alcohol intake: never Patient Tobacco Use Status: Former Tobacco user Tobacco use type: Cigarette Cigarettes Per Day: 10 e-Cigarette/Vaping Use: Never Used Second Hand Smoke Exposure: No Advance Directives Date on File: 04/23/22 service: No Current occupational status: retired and disabled Cognitive needs: Yes (walker/Transport wheelchair) Hearing needs: No Vision needs: Yes (Contacts) Questionnaire PHQ-9 Over the last 2 weeks, how often have you been bothered by any of the following problems? 1. Little interest or pleasure in doing things: several days 2. Feeling down, depressed, or hopeless: several days 3. Trouble falling or staying asleep, or sleeping too much: not at all 4. Feeling tired or having little energy: not at all 5. Poor appetite or overeating: not at all 6. Feeling bad about yourself - or that you are a failure or have let yourself or your family down: not at all 7. Trouble concentrating on things, such as reading the newspaper or watching television: not at all 8. Moving or speaking so slowly that other people could have noticed. Or the opposite - being so fidgety or restless that you have been moving around a lot more than usual: not at all 9. Thoughts that you would be better off or of hurting yourself in some way: not at all Total score: 2 Depression Screening Interpretation: Negative 74900 - PHQ-9 Billing: Yes Source: Developed by Drs. Yosef Akers, Lisset Kramer, Melecio Lund and colleagues, with an educational bre from [employer]. Thrive Questionnaire Date Thrive assessed: 10/24/22 AUDIT C Alcohol Use Questionnaire (AUDIT-C) 1. How often do you have a drink containing alcohol?: Never Total Score: 0 Score Reviewed/Action Taken: No ERICA-7 AMB Questionnaire ERICA-7 Date ERICA - 7 assessed: 10/24/22 Feeling nervous, anxious, or on edge: 1 = Several days Not being able to stop or control worryin = Several days Worrying too much about different things: 0 = Not at all Trouble relaxin = Not at all Being so restless that it is hard to sit still: 0 = Not at all Becoming easily annoyed or irritable: 0 = Not at all Feeling afraid as if something awful might happen: 0 = Not at all Total ERICA-7 score (0-4 normal; 5-9 mild; 10-14 moderate; 15-21 severe): 2 Source: Developed by Drs. Yosef Akers, Lisset Kramer, Melecio Lund and colleagues, with an educational bre from [employer]. ERICA-7 Assessment Billing ERICA-7 Assessment Tool: ERICA-7 Assessment 74240 Review of Systems Const All systems reviewed & are unremarkable except as noted in HPI and below Eyes Reports no additional complaints, Denies change in vision and Denies other visual disturbances Card Denies chest pain at rest, Denies chest pain with activity, Denies edema, Denies irregular heart rhythm, Denies claudication, Denies dyspnea, Denies dyspnea on exertion, Denies orthopnea, Denies paroxysmal nocturnal dyspnea and Denies slow heart rate Resp Denies cough, Denies dyspnea and Denies dyspnea on exertion GI Denies abdominal pain, Denies change in bowel habits, Denies excessive flatus, Denies nausea and Denies vomiting Denies urinary incontinence, Denies urinary hesitancy and Denies urinary urgency Musc Denies abnormal gait, Denies atrophy, Denies deformity and Denies limited range of motion Skin/Breast Denies bleeding lesions, Denies changing lesions and Denies rash Neuro Denies abnormal gait, Denies behavioral changes, Denies confusion and Denies lack of coordination Psych Denies behavioral changes and Denies confusion Physical exam (Primary Care) Vital Signs: Last Vital Signs Pulse 80 03/05/23 15:59 BP 100/70 03/05/23 15:59 Pulse Ox 93 03/05/23 15:59 Oxygen Delivery Method Room Air 03/05/23 15:59 BMI result Body Mass Index 21.5 Tobacco/Smoking Status: Tobacco use Status Tobacco use date assessed 10/24/22 03/05/23 16:15 Patient Tobacco Use Status Former Tobacco user 03/05/23 16:15 Tobacco use type Cigarette 03/05/23 16:15 e-Cigarette/Vaping Use Never Used 03/05/23 16:15 PHQ-9: PHQ-9 Score PHQ-9: Total score 2 03/05/23 16:27 Depression Screening Interpretation: Negative Thrive Assessment: Date of Thrive Assessment Date Thrive assessed 10/24/22 03/05/23 16:15 Const General: No confusion Orientation/consciousness: patient oriented x3 and No confusion Limitations: wheelchair HENMT Head: Yes normal to inspection, Yes normocephalic and Yes atraumatic Ears: external ears normal Eyes General: appearance normal, both eyes and all related structures Eyelids: Yes eyelids normal Conjunctivae: conjunctivae normal Neck Neck: Yes normal visual inspection and Yes supple Resp Effort & Inspection: normal respiratory effort Auscultation: clear to auscultation bilaterally Cardio Jugular venous distension: no JVD Rate: regular rate Rhythm: regular rhythm Heart sounds: S1 normal heart sound present and S2 normal heart sound present GI Inspection: Yes normal to inspection Palpation (GI): Soft to palpation and nontender Auscultation: normal bowel sounds Skin General skin exam: no rashes or lesions noted Neuro General: patient oriented x3, no focal motor deficits and No confusion Extrem Other: right bka with prothesis Psych Appearance: grossly normal Assessment and Plan Assessment & Plan (1) Physical exam: Code(s): Z00.00 - Encounter for general adult medical examination without abnormal findings Plan: Repeat in a year (2) COPD (chronic obstructive pulmonary disease): Code(s): J44.9 - Chronic obstructive pulmonary disease, unspecified Plan: Continue with inhalers. (3) Below-knee amputation of right lower extremity: Code(s): S88.111A - Complete traumatic amputation at level between knee and ankle, right lower leg, initial encounter Plan: Physical therapy at home needed to be able to handle her prothesis and be able to walk with her prothesis again. Orders: Orders MM screening mammo BI 03/05/23 Z12.31 - Encounter for screening mammogram for malignant neoplasm of breast Comprehensive [place]. Panel Fast 03/05/23 E83.42 - Hypomagnesemia Lipid Panel 03/05/23 E78.5 - Hyperlipidemia, unspecified Referrals Cologuard Test Z12.11 - Encounter for screening for malignant neoplasm of colon, Z12.12 - Encounter for screening for malignant neoplasm of rectum Coding Level of Care Code Est Pt Prev Care >65y(49945) Diagnoses Physical exam Z00.00 COPD (chronic obstructive pulmonary disease) J44.9 Below-knee amputation of right lower extremity S88.111A Additional Codes ERICA-7 Assessment Billing - ERICA-7 Assessment Tool: ERICA-7 Assessment 93901 ([id number]) Time Spent (min) 35
[2023-03-05 15:59] VITALS: BP 100/70; PULSE 80; O2SAT 93; BMI 21.5
== END 2023-03-05 16:39 | disposition home or self-care (01) ==
PROVIDERS: Visit Provider Internal Medicine
DX: Z00.00 Encounter for general adult medical examination without abnormal findings (principal); J44.9 Chronic obstructive pulmonary disease, unspecified; S88.111A Complete traumatic amputation at level between knee and ankle, right lower leg, initial encounter
CPT/HCPCS: 99397